=== PATIENT | male | born 1940 | race African-American/Black ===

== ENCOUNTER 2016-07-02 12:10 | Emergency (ER) | payer MEDICARE, OTHER ==
[~2016-07-02] VITALS: Ht 182.9 cm; Wt 86.4 kg
[~2016-07-02 12:10] MED LIST: ALLO100T PO; ASPI-825 PO; B CO1CAP4 PO; CARV25 PO; ENAL5 PO; FURO-151 PO; NITR.4 SL; ROSU10 PO; VITAD1000 PO
[2016-07-02] MEDS ORDERED: ALLO100T PO (13:04)
[2016-07-02] MEDS ORDERED: ROSU10 PO (13:04)
[2016-07-02] MEDS ORDERED: SEVEC800 PO (13:04)
[2016-07-02] MEDS ORDERED: HYDR25 PO (13:04)
[2016-07-02] MEDS ORDERED: NITROGLYCERIN 2% (1 GM=INCH) PACKET TP ONE (13:15)
[2016-07-02 13:41] LABS: BASOPHILS % (AUTO) 0.6 % (0.0-2.0); EOSINOPHILS % (AUTO) 4.5 % (1.0-6.0); HEMATOCRIT 32.9 % (41-53); HEMOGLOBIN 10.7 g/dL (13.5-17.5); LYMPHOCYTES # (AUTO) 1.2 K/uL (1.0-4.8); LYMPHOCYTES % (AUTO) 21.3 % (22.0-44.0); MEAN CORPUSCULAR HEMOGLOBIN 32.4 pg (26.0-34.0); MEAN CORPUSCULAR HGB CONC 32.6 G/dL (31.0-37.0); MEAN CORPUSCULAR VOLUME 99 fL (80-100); MONOCYTES % (AUTO) 18.1 % (2.0-9.0); NEUTROPHILS # (AUTO) 3.1 K/uL (1.8-7.7); NEUTROPHILS % (AUTO) 55.5 % (40.0-70.0); PLATELET COUNT (AUTO) 115 K/uL (150-450); RED BLOOD CELL COUNT(AUTO) 3.31 MIL/uL (4.50-5.90); RED CELL DISTRIBUTION WIDTH 14.6 % (11.5-14.5); WHITE BLOOD COUNT (AUTO) 5.6 K/uL (4.5-11.0)
[2016-07-02 13:50] LABS: ANION GAP 4 mmol/L (8-16); CALCIUM, TOTAL 8.8 mg/dL (8.8-10.5); CARBON DIOXIDE 39 mmol/L (22-29); CHLORIDE 96 mmol/L (98-107); CREATININE 5.01 mg/dL (0.60-1.30); GLOMERULAR FILTR. RATE CALC 14 mL/min (>60); POTASSIUM 3.2 mmol/L (3.5-5.1); SODIUM SERUM 139 mmol/L (136-145); UREA NITROGEN, BLOOD 28 mg/dL (7-18)
[2016-07-02 14:00] LABS: B-TYPE NATRIURETIC PEPTIDE 825 pg/mL (0-100)
[2016-07-02 14:17] LABS: ALANINE AMINOTRANSFERASE 10 U/L (12-78); ALBUMIN 3.1 g/dL (3.4-5.0); ASPARTATE AMINOTRANSFERASE 11 U/L (15-37); BILIRUBIN,TOTAL 0.7 mg/dL (0.1-1.0); CREATINE KINASE MB 1.2 ng/mL (0-5); CREATINE KINASE, TOTAL 183 U/L (39-308); TOTAL PROTEIN, SERUM 6.4 g/dL (6.4-8.2)
[2016-07-02 15:04] VITALS: BP 152/80
== END 2016-07-02 15:20 | disposition home or self-care (01) ==
LOC: EMS 12:13
DX: I11.0 Hypertensive heart disease with heart failure (principal); I50.9 Heart failure, unspecified; I51.7 Cardiomegaly; K21.9 Gastro-esophageal reflux disease without esophagitis; J45.909 Unspecified asthma, uncomplicated; Z95.0 Presence of cardiac pacemaker; Z79.82 Long term (current) use of aspirin; Z91.018 Allergy to other foods
CPT/HCPCS: 93005; 99291

== ENCOUNTER 2017-02-17 21:02 | Inpatient (IN) | payer MEDICARE, OTHER ==
[~2017-02-17] VITALS: Ht 182.9 cm; Wt 83.6 kg
[~2017-02-17 21:02] MED LIST changes: +HYDR25TA84 PO; +SEVEC800 PO
[2017-02-17 21:33] LABS: BASOPHILS # (AUTO) 0.03 K/uL (0.00-0.20); BASOPHILS % (AUTO) 0.6 % (0.0-2.0); EOSINOPHILS # (AUTO) 0.32 K/uL (0.00-0.70); EOSINOPHILS % (AUTO) 5.77 % (1.0-6.0); HEMATOCRIT 29.4 % (41-53); HEMOGLOBIN 9.8 g/dL (13.5-17.5); LYMPHOCYTES # (AUTO) 1.2 K/uL (1.0-4.8); LYMPHOCYTES % (AUTO) 21.8 % (22.0-44.0); MEAN CORPUSCULAR HEMOGLOBIN 32.9 pg (26.0-34.0); MEAN CORPUSCULAR HGB CONC 33.2 G/dL (31.0-37.0); MEAN CORPUSCULAR VOLUME 99 fL (80-100); MONOCYTES # (AUTO) 0.8 K/uL (0.1-1.0); MONOCYTES % (AUTO) 14.2 % (2.0-9.0); NEUTROPHILS # (AUTO) 3.1 K/uL (1.8-7.7); NEUTROPHILS % (AUTO) 57.6 % (40.0-70.0); PLATELET COUNT (AUTO) 116 K/uL (150-450); RED BLOOD CELL COUNT(AUTO) 2.97 MIL/uL (4.50-5.90); RED CELL DISTRIBUTION WIDTH 15.2 % (11.5-14.5); WHITE BLOOD COUNT (AUTO) 5.5 K/uL (4.5-11.0)
[2017-02-17 21:44] LABS: ANION GAP 8 mmol/L (8-16); CALCIUM, TOTAL 8.5 mg/dL (8.8-10.5); CARBON DIOXIDE 35 mmol/L (22-29); CHLORIDE 101 mmol/L (98-107); CREATININE 7.16 mg/dL (0.60-1.30); GLOMERULAR FILTR. RATE CALC 9 mL/min (>60); POTASSIUM 3.5 mmol/L (3.5-5.1); PROTHROMBIN TIME 10.9 SEC (9.4-11.6); SODIUM SERUM 144 mmol/L (136-145); UREA NITROGEN, BLOOD 36 mg/dL (7-18)
[2017-02-17 21:52] LABS: B-TYPE NATRIURETIC PEPTIDE 411 pg/mL (0-100)
[2017-02-17 22:09] LABS: ALANINE AMINOTRANSFERASE 15 U/L (12-78); ALBUMIN 3.3 g/dL (3.4-5.0); ASPARTATE AMINOTRANSFERASE 13 U/L (15-37); BILIRUBIN,TOTAL 0.5 mg/dL (0.1-1.0); CREATINE KINASE MB 1.2 ng/mL (0-5); CREATINE KINASE, TOTAL 212 U/L (39-308); TOTAL PROTEIN, SERUM 6.8 g/dL (6.4-8.2)
[2017-02-17] MEDS ORDERED: ASPIRIN 325 MG TABLET PO ONE (22:15)
[2017-02-17] MEDS ORDERED: ZOLPIDEM TARTRATE 5 MG TABLET PO PRN (22:45)
[2017-02-17] MEDS ORDERED: BISACODYL 10 MG RECTAL RECTAL SUPPOSITORY PR PRN (22:45)
[2017-02-17] MEDS ORDERED: OxyCODONE HCL/ACETAMINOPHEN 5-325 MG TABLET PO PRN (22:45)
[2017-02-17] MEDS ORDERED: ACETAMINOPHEN 325 MG TABLET PO PRN (22:45)
[2017-02-17 23:20] VITALS: BP 157/72
[2017-02-18 04:37] VITALS: BP 157/70
[2017-02-18] MEDS ORDERED: INFLUENZA VIRUS VACCINE QVS 2017-18 (3YR+)/PF 60 MCG/0.5 ML SYRINGE IM ONE (06:45)
[2017-02-18 07:12] VITALS: BP 157/70
[2017-02-18 07:50] LABS: APPEARANCE,URINE CLOUDY (CLEAR); GLUCOSE, URINE (UA) NEGATIVE (NEGATIVE); KETONES,URINE NEGATIVE (NEGATIVE); LEUKOCYTE ESTERASE ,URINE LARGE (NEGATIVE); OCCULT BLOOD,URINE SMALL (NEGATIVE); PROTEIN,URINE POS 1+ (NEGATIVE)
[2017-02-18 08:03] LABS: ADD UA MICROSCOPIC YES; WBC,URINE 51-100 /HPF (0-5)
[2017-02-18] MEDS: ASPIRIN 81 MG CHEWABLE TABLET PO SCH (08:44)
[2017-02-18] MEDS: DOCUSATE SODIUM 100 MG CAPSULE PO SCH ×2 (08:44→21:22)
[2017-02-18] MEDS: CARVEDILOL 12.5 MG TABLET PO SCH ×2 (08:44→21:22)
[2017-02-18] MEDS: ENALAPRIL MALEATE 5 MG TABLET PO SCH (08:44)
[2017-02-18] MEDS: VITAMIN B COMP/VIT C/FOLIC ACID CAPSULE PO SCH ×2 (08:44→13:14)
[2017-02-18] MEDS: PANTOPRAZOLE SODIUM 40 MG DR TABLET PO SCH (08:45)
[2017-02-18] MEDS: HEPARIN SODIUM,PORCINE 5,000 UNITS/ML VIAL SQ SCH ×2 (08:46→21:22)
[2017-02-18] MEDS ORDERED: DOXERCALCIFEROL 4 MCG/2 ML AMP IVP SCH (11:45)
[2017-02-18 12:11] VITALS: BP 136/63
[2017-02-18] MEDS: SEVELAMER CARBONATE 800 MG TABLET PO SCH ×2 (13:16→17:59)
[2017-02-18 15:35] VITALS: BP 128/65
[2017-02-18 19:40] VITALS: BP 144/60
[2017-02-18] MEDS: ROSUVASTATIN CALCIUM 10 MG TABLET PO SCH (21:22)
[2017-02-18 23:31] VITALS: BP 133/55
[2017-02-19 04:53] VITALS: BP 143/59
[2017-02-19 07:29] VITALS: BP 130/75
[2017-02-19] MEDS: ENALAPRIL MALEATE 5 MG TABLET PO SCH (08:45)
[2017-02-19] MEDS: DOCUSATE SODIUM 100 MG CAPSULE PO SCH ×2 (08:45→19:55)
[2017-02-19] MEDS: VITAMIN B COMP/VIT C/FOLIC ACID CAPSULE PO SCH ×2 (08:45→09:00)
[2017-02-19] MEDS: PANTOPRAZOLE SODIUM 40 MG DR TABLET PO SCH (08:45)
[2017-02-19] MEDS: SEVELAMER CARBONATE 800 MG TABLET PO SCH ×3 (08:45→18:27)
[2017-02-19] MEDS: CARVEDILOL 12.5 MG TABLET PO SCH ×2 (08:45→19:56)
[2017-02-19] MEDS: ASPIRIN 81 MG CHEWABLE TABLET PO SCH (08:45)
[2017-02-19] MEDS: HEPARIN SODIUM,PORCINE 5,000 UNITS/ML VIAL SQ SCH ×2 (09:55→19:55)
[2017-02-19 11:22] VITALS: BP 133/55
[2017-02-19 15:47] VITALS: BP 127/59
[2017-02-19] MEDS ORDERED: MAGNESIUM CITRATE 300 ML ORAL SOLUTION PO ONE (17:00)
[2017-02-19 19:46] VITALS: BP 141/65
[2017-02-19] MEDS: ROSUVASTATIN CALCIUM 10 MG TABLET PO SCH (19:56)
[2017-02-19 23:58] VITALS: BP 128/51
[2017-02-20 04:36] VITALS: BP 135/65
[2017-02-20 07:42] VITALS: BP 142/59
[2017-02-20] MEDS: DOCUSATE SODIUM 100 MG CAPSULE PO SCH ×2 (08:36→19:55)
[2017-02-20] MEDS: VITAMIN B COMP/VIT C/FOLIC ACID CAPSULE PO SCH ×2 (08:37)
[2017-02-20] MEDS: PANTOPRAZOLE SODIUM 40 MG DR TABLET PO SCH (08:37)
[2017-02-20] MEDS: CARVEDILOL 12.5 MG TABLET PO SCH ×2 (08:37→19:55)
[2017-02-20] MEDS: SEVELAMER CARBONATE 800 MG TABLET PO SCH ×3 (08:37→18:06)
[2017-02-20] MEDS: HEPARIN SODIUM,PORCINE 5,000 UNITS/ML VIAL SQ SCH ×2 (08:38→19:55)
[2017-02-20] MEDS: ASPIRIN 81 MG CHEWABLE TABLET PO SCH (08:38)
[2017-02-20] MEDS: ENALAPRIL MALEATE 5 MG TABLET PO SCH (08:38)
[2017-02-20] MEDS ORDERED: EPOETIN ALFA 10,000 UNITS/ML 2 ML VIAL SQ SCH (09:00)
[2017-02-20 11:16] VITALS: BP 130/56
[2017-02-20 13:16] LABS: BASOPHILS % (AUTO) 0.6 % (0.0-2.0); EOSINOPHILS % (AUTO) 7.5 % (1.0-6.0); HEMOGLOBIN 10.4 g/dL (13.5-17.5); LYMPHOCYTES # (AUTO) 0.9 K/uL (1.0-4.8); LYMPHOCYTES % (AUTO) 18.7 % (22.0-44.0); MEAN CORPUSCULAR HEMOGLOBIN 33.1 pg (26.0-34.0); MEAN CORPUSCULAR HGB CONC 33.4 G/dL (31.0-37.0); MEAN CORPUSCULAR VOLUME 99 fL (80-100); MONOCYTES # (AUTO) 0.6 K/uL (0.1-1.0); MONOCYTES % (AUTO) 11.4 % (2.0-9.0); NEUTROPHILS % (AUTO) 61.8 % (40.0-70.0); PLATELET COUNT (AUTO) 119 K/uL (150-450); RED BLOOD CELL COUNT(AUTO) 3.13 MIL/uL (4.50-5.90); RED CELL DISTRIBUTION WIDTH 14.7 % (11.5-14.5); WHITE BLOOD COUNT (AUTO) 4.9 K/uL (4.5-11.0)
[2017-02-20 13:23] LABS: CALCIUM, TOTAL 8.2 mg/dL (8.8-10.5); CREATININE 7.28 mg/dL (0.60-1.30)
[2017-02-20 13:29] LABS: BILIRUBIN,TOTAL 0.4 mg/dL (0.1-1.0); TOTAL PROTEIN, SERUM 6.4 g/dL (6.4-8.2)
[2017-02-20 16:33] VITALS: BP 131/72
[2017-02-20] MEDS: ROSUVASTATIN CALCIUM 10 MG TABLET PO SCH (19:55)
[2017-02-20 20:06] VITALS: BP 119/57
[2017-02-21 00:25] VITALS: BP 122/51
[2017-02-21 04:55] VITALS: BP 117/52
[2017-02-21 07:23] VITALS: BP 118/56
[2017-02-21] MEDS: PANTOPRAZOLE SODIUM 40 MG DR TABLET PO SCH (08:53)
[2017-02-21] MEDS: CARVEDILOL 12.5 MG TABLET PO SCH (08:53)
[2017-02-21] MEDS: VITAMIN B COMP/VIT C/FOLIC ACID CAPSULE PO SCH ×2 (08:53→08:55)
[2017-02-21] MEDS: ASPIRIN 81 MG CHEWABLE TABLET PO SCH (08:53)
[2017-02-21] MEDS: ENALAPRIL MALEATE 5 MG TABLET PO SCH (08:53)
[2017-02-21] MEDS: SEVELAMER CARBONATE 800 MG TABLET PO SCH ×2 (08:53→11:37)
[2017-02-21] MEDS: DOCUSATE SODIUM 100 MG CAPSULE PO SCH (08:53)
[2017-02-21] MEDS: HEPARIN SODIUM,PORCINE 5,000 UNITS/ML VIAL SQ SCH (08:53)
[2017-02-21 11:25] VITALS: BP 125/55
== END 2017-02-21 13:40 | disposition home or self-care (01) | DRG 291 ==
LOC: EMS 21:12 → 5S 23:13
PROVIDERS: ADMIT Internal Medicine; ATTEND Internal Medicine
PROC: 3E0234Z Introduction of Serum, Toxoid and Vaccine into Muscle, Percutaneous Approach (ICD-10-PCS; principal; 2017-02-18)
DX: I13.2 Hypertensive heart and chronic kidney disease with heart failure and with stage 5 chronic kidney disease, or end stage renal disease (principal); I50.43 Acute on chronic combined systolic (congestive) and diastolic (congestive) heart failure; N18.6 End stage renal disease; I25.5 Ischemic cardiomyopathy; M10.9 Gout, unspecified; E78.5 Hyperlipidemia, unspecified; J45.909 Unspecified asthma, uncomplicated; K21.9 Gastro-esophageal reflux disease without esophagitis; M16.10 Unilateral primary osteoarthritis, unspecified hip; Z95.810 Presence of automatic (implantable) cardiac defibrillator; Z85.46 Personal history of malignant neoplasm of prostate; Z99.2 Dependence on renal dialysis; Z82.49 Family history of ischemic heart disease and other diseases of the circulatory system; Z79.82 Long term (current) use of aspirin; Z79.899 Other long term (current) drug therapy; Z23 Encounter for immunization; Z88.8 Allergy status to other drugs, medicaments and biological substances
CPT/HCPCS: 87081; 87086; 87340; 90471; 90935; 93005; 93306; 99285; J0885; J1644

== ENCOUNTER 2017-03-01 23:23 | Inpatient (IN) | payer MEDICARE, OTHER ==
[~2017-03-01] VITALS: Ht 182.9 cm; Wt 82.2 kg
[2017-03-01 23:59] LABS: BASOPHILS % (AUTO) 1.3 % (0.0-2.0); EOSINOPHILS % (AUTO) 2.8 % (1.0-6.0); HEMATOCRIT 32.3 % (41-53); HEMOGLOBIN 10.5 g/dL (13.5-17.5); LYMPHOCYTES # (AUTO) 1.3 K/uL (1.0-4.8); LYMPHOCYTES % (AUTO) 27.6 % (22.0-44.0); MEAN CORPUSCULAR HEMOGLOBIN 32.8 pg (26.0-34.0); MEAN CORPUSCULAR HGB CONC 32.6 G/dL (31.0-37.0); MEAN CORPUSCULAR VOLUME 101 fL (80-100); MONOCYTES # (AUTO) 0.8 K/uL (0.1-1.0); MONOCYTES % (AUTO) 15.9 % (2.0-9.0); NEUTROPHILS # (AUTO) 2.5 K/uL (1.8-7.7); NEUTROPHILS % (AUTO) 52.4 % (40.0-70.0); PLATELET COUNT (AUTO) 135 K/uL (150-450); RED BLOOD CELL COUNT(AUTO) 3.21 MIL/uL (4.50-5.90); RED CELL DISTRIBUTION WIDTH 14.9 % (11.5-14.5); WHITE BLOOD COUNT (AUTO) 4.8 K/uL (4.5-11.0)
[2017-03-02 00:10] LABS: ANION GAP 12 mmol/L (8-16); CALCIUM, TOTAL 9.2 mg/dL (8.8-10.5); CARBON DIOXIDE 28 mmol/L (22-29); CHLORIDE 104 mmol/L (98-107); CREATININE 10.79 mg/dL (0.60-1.30); GLOMERULAR FILTR. RATE CALC 6 mL/min (>60); POTASSIUM 4.2 mmol/L (3.5-5.1); SODIUM SERUM 144 mmol/L (136-145); UREA NITROGEN, BLOOD 70 mg/dL (7-18)
[2017-03-02 00:12] LABS: INR 1.1 (0.9-1.1); PROTHROMBIN TIME 11.4 SEC (9.4-11.6)
[2017-03-02 00:25] LABS: B-TYPE NATRIURETIC PEPTIDE 278 pg/mL (0-100)
[2017-03-02 00:33] LABS: ALANINE AMINOTRANSFERASE 15 U/L (12-78); ALBUMIN 3.6 g/dL (3.4-5.0); ASPARTATE AMINOTRANSFERASE 15 U/L (15-37); BILIRUBIN,TOTAL 0.9 mg/dL (0.1-1.0); CREATINE KINASE MB 1.4 ng/mL (0-5); CREATINE KINASE, TOTAL 242 U/L (39-308); TOTAL PROTEIN, SERUM 6.9 g/dL (6.4-8.2)
[2017-03-02] MEDS ORDERED: ASPIRIN 325 MG TABLET PO ONE (01:30)
[2017-03-02] MEDS ORDERED: NITROGLYCERIN 0.4 MG SUBLINGUAL TABLET #25 SL ONE (01:30)
[2017-03-02] MEDS ORDERED: ONDANSETRON HCL 4 MG/2 ML VIAL IVP PRN ×2 (03:45→04:30)
[2017-03-02] MEDS ORDERED: ACETAMINOPHEN 325 MG TABLET PO PRN ×2 (03:45→04:30)
[2017-03-02] MEDS ORDERED: 0.9% SODIUM CHLORIDE 10 ML SYRINGE IVP PRN (03:45)
[2017-03-02] MEDS ORDERED: NITROGLYCERIN 2% (1 GM=INCH) PACKET TP ONE (04:00)
[2017-03-02 04:26] VITALS: BP 157/63
[2017-03-02] MEDS ORDERED: MORPHINE SULFATE 2 MG/ML SYRINGE IVP PRN (04:30)
[2017-03-02] MEDS ORDERED: ALBUTEROL SULFATE 2.5 MG/0.5 ML NEB SOLUTION NEB PRN (04:30)
[2017-03-02] MEDS ORDERED: MAGNESIUM HYDROXIDE SUSPENSION 30 ML UDCUP PO PRN (04:30)
[2017-03-02] MEDS ORDERED: OxyCODONE HCL/ACETAMINOPHEN 5-325 MG TABLET PO PRN (04:30)
[2017-03-02] MEDS ORDERED: IPRATROPIUM BROMIDE 0.5 MG/2.5 ML NEB SOLUTION NEB PRN (04:30)
[2017-03-02] MEDS ORDERED: ZOLPIDEM TARTRATE 5 MG TABLET PO PRN (04:30)
[2017-03-02] MEDS ORDERED: BISACODYL 10 MG RECTAL RECTAL SUPPOSITORY PR PRN (04:30)
[2017-03-02] MEDS ORDERED: PNEUMOCOCCAL VACCINE POLYVALENT 0.5 ML VIAL [PPSV23] IM ONE (05:15)
[2017-03-02 07:37] VITALS: BP 145/79
[2017-03-02] MEDS: SEVELAMER CARBONATE 800 MG TABLET PO SCH ×3 (08:16→17:41)
[2017-03-02] MEDS: HydrALAZINE HCL 25 MG TABLET PO SCH ×3 (08:17→20:58)
[2017-03-02] MEDS: CHOLECALCIFEROL (VIT D3) 1,000 UNITS TABLET PO SCH (08:18)
[2017-03-02] MEDS: ALLOPURINOL 100 MG TABLET PO SCH (08:19)
[2017-03-02] MEDS: PANTOPRAZOLE SODIUM 40 MG DR TABLET PO SCH (08:19)
[2017-03-02] MEDS: ROSUVASTATIN CALCIUM 10 MG TABLET PO SCH (08:19)
[2017-03-02] MEDS: VITAMIN B COMP/VIT C/FOLIC ACID CAPSULE PO SCH (08:20)
[2017-03-02] MEDS: CARVEDILOL 25 MG TABLET PO SCH ×2 (08:21→20:58)
[2017-03-02] MEDS ORDERED: FUROSEMIDE 40 MG TABLET PO SCH (09:00)
[2017-03-02] MEDS: ENALAPRIL MALEATE 5 MG TABLET PO SCH (09:00)
[2017-03-02] MEDS ORDERED: DOXERCALCIFEROL 4 MCG/2 ML AMP IVP PRN (11:00)
[2017-03-02] MEDS: NITROGLYCERIN 2% (1 GM=INCH) PACKET TP SCH ×2 (11:00→17:41)
[2017-03-02 11:09] VITALS: BP 133/64
[2017-03-02 20:15] VITALS: BP 126/64
[2017-03-03 00:28] VITALS: BP 137/60
[2017-03-03] MEDS: NITROGLYCERIN 2% (1 GM=INCH) PACKET TP SCH ×3 (01:10→12:00)
[2017-03-03 05:52] VITALS: BP 140/61
[2017-03-03 08:00] VITALS: BP 130/67
[2017-03-03] MEDS: ALLOPURINOL 100 MG TABLET PO SCH (08:27)
[2017-03-03] MEDS: CHOLECALCIFEROL (VIT D3) 1,000 UNITS TABLET PO SCH (08:27)
[2017-03-03] MEDS: VITAMIN B COMP/VIT C/FOLIC ACID CAPSULE PO SCH (08:28)
[2017-03-03] MEDS: ROSUVASTATIN CALCIUM 10 MG TABLET PO SCH (08:28)
[2017-03-03] MEDS: ENALAPRIL MALEATE 5 MG TABLET PO SCH (08:29)
[2017-03-03] MEDS ORDERED: -HEMODIALYSIS NOTE- MISC SCH (09:00)
[2017-03-03] MEDS: CARVEDILOL 25 MG TABLET PO SCH (09:00)
[2017-03-03] MEDS ORDERED: FUROSEMIDE 40 MG TABLET PO SCH (09:00)
[2017-03-03] MEDS: SEVELAMER CARBONATE 800 MG TABLET PO SCH ×2 (09:26→12:00)
[2017-03-03] MEDS: PANTOPRAZOLE SODIUM 40 MG DR TABLET PO SCH (09:27)
[2017-03-03] MEDS: HydrALAZINE HCL 25 MG TABLET PO SCH (09:27)
[2017-03-03 11:38] VITALS: BP 118/61
[2017-03-04] MEDS ORDERED: EPOETIN ALFA 10,000 UNITS/ML 2 ML VIAL SQ SCH (09:00)
== END 2017-03-03 15:50 | disposition home or self-care (01) | DRG 302 ==
LOC: EMS 23:25 → 5S 03-02 03:42 → 5N 03-02 17:28
PROVIDERS: ADMIT Internal Medicine; ATTEND Internal Medicine
PROC: 3E0234Z Introduction of Serum, Toxoid and Vaccine into Muscle, Percutaneous Approach (ICD-10-PCS; principal; 2017-03-02)
PROC: 5A1D70Z Performance of Urinary Filtration, Intermittent, Less than 6 Hours Per Day (ICD-10-PCS; 2017-03-02)
DX: I25.10 Atherosclerotic heart disease of native coronary artery without angina pectoris (principal); N18.6 End stage renal disease; I13.2 Hypertensive heart and chronic kidney disease with heart failure and with stage 5 chronic kidney disease, or end stage renal disease; D69.6 Thrombocytopenia, unspecified; I25.5 Ischemic cardiomyopathy; N25.81 Secondary hyperparathyroidism of renal origin; I50.20 Unspecified systolic (congestive) heart failure; R07.89 Other chest pain; J45.909 Unspecified asthma, uncomplicated; M10.9 Gout, unspecified; E78.5 Hyperlipidemia, unspecified; Z99.2 Dependence on renal dialysis; K21.9 Gastro-esophageal reflux disease without esophagitis; Z95.0 Presence of cardiac pacemaker; Z79.82 Long term (current) use of aspirin; Z79.899 Other long term (current) drug therapy; Z82.3 Family history of stroke; Z85.46 Personal history of malignant neoplasm of prostate; Z95.810 Presence of automatic (implantable) cardiac defibrillator; Z23 Encounter for immunization; Z91.018 Allergy to other foods; Z83.6 Family history of other diseases of the respiratory system; Z81.8 Family history of other mental and behavioral disorders
CPT/HCPCS: 87081; 87340; 90935; 93005; 99285; J0885

== ENCOUNTER 2017-06-13 13:18 | Inpatient (IN) | payer MEDICARE, OTHER ==
[~2017-06-13] VITALS: Ht 182.9 cm; Wt 90.8 kg
[2017-06-13 15:04] LABS: BASOPHILS # (AUTO) 0.03 K/uL (0.00-0.20); BASOPHILS % (AUTO) 0.6 % (0.0-2.0); EOSINOPHILS # (AUTO) 0.22 K/uL (0.00-0.70); EOSINOPHILS % (AUTO) 3.88 % (1.0-6.0); HEMATOCRIT 35.1 % (41-53); HEMOGLOBIN 11.4 g/dL (13.5-17.5); LYMPHOCYTES # (AUTO) 0.7 K/uL (1.0-4.8); LYMPHOCYTES % (AUTO) 12.6 % (22.0-44.0); MEAN CORPUSCULAR HEMOGLOBIN 32.9 pg (26.0-34.0); MEAN CORPUSCULAR HGB CONC 32.6 G/dL (31.0-37.0); MEAN CORPUSCULAR VOLUME 101 fL (80-100); MONOCYTES # (AUTO) 0.7 K/uL (0.1-1.0); MONOCYTES % (AUTO) 11.6 % (2.0-9.0); NEUTROPHILS # (AUTO) 4.1 K/uL (1.8-7.7); NEUTROPHILS % (AUTO) 71.4 % (40.0-70.0); PLATELET COUNT (AUTO) 140 K/uL (150-450); RED BLOOD CELL COUNT(AUTO) 3.47 MIL/uL (4.50-5.90)
[2017-06-13 15:15] LABS: CALCIUM, TOTAL 9.2 mg/dL (8.8-10.5); CREATININE 8.88 mg/dL (0.60-1.30); POTASSIUM 3.7 mmol/L (3.5-5.1)
[2017-06-13 15:21] LABS: ALBUMIN 3.4 g/dL (3.4-5.0); BILIRUBIN,TOTAL 0.6 mg/dL (0.1-1.0); TOTAL PROTEIN, SERUM 7.6 g/dL (6.4-8.2)
[2017-06-13 16:30] LABS: APPEARANCE,URINE CLOUDY (CLEAR); GLUCOSE, URINE (UA) NEGATIVE (NEGATIVE); KETONES,URINE NEGATIVE (NEGATIVE); LEUKOCYTE ESTERASE ,URINE MODERATE (NEGATIVE); NITRATE,URINE POSITIVE (NEGATIVE); OCCULT BLOOD,URINE SMALL (NEGATIVE); PH,URINE 6.5 (5.0-8.0); PROTEIN,URINE SEE CONFIRM (NEGATIVE)
[2017-06-13 16:34] LABS: AMPHET/METH SCREEN,URINE NEGATIVE (NEGATIVE); BARBITURATE SCREEN, URINE NEGATIVE (NEGATIVE); BENZODIAZEPINES SCREEN,URINE NEGATIVE (NEGATIVE); CANNABINOID SCREEN,URINE NEGATIVE (NEGATIVE); COCAINE SCREEN,URINE NEGATIVE (NEGATIVE); METHADONE SCREEN, URINE NEGATIVE (NEGATIVE); OPIATE SCREEN,URINE NEGATIVE (NEGATIVE)
[2017-06-13 16:40] LABS: PHENCYCLIDINE SCREEN,URINE NEGATIVE (NEGATIVE)
[2017-06-13 17:03] LABS: BILIRUBIN,URINE PRELIM. POSITIVE (NEGATIVE)
[2017-06-13 17:11] LABS: BACTERIA,URINE Moderate /HPF (None Seen); SQUAMOUS EPITHELIAL CELL,UR Few /LPF (None Seen); SULFOSALICYLIC ACID,URINE 2+ (Negative)
[2017-06-13] MEDS ORDERED: CefTRIAXone SODIUM 1 GM in DEXTROSE 5%-WATER 10 ML IV ONE (17:30)
[2017-06-13] MEDS ORDERED: ONDANSETRON HCL 4 MG/2 ML VIAL IVP PRN ×2 (18:45→20:15)
[2017-06-13] MEDS ORDERED: ACETAMINOPHEN 325 MG TABLET PO PRN ×2 (18:45→20:15)
[2017-06-13 20:14] VITALS: BP 139/58
[2017-06-13] MEDS ORDERED: ALBUTEROL SULFATE 2.5 MG/0.5 ML NEB SOLUTION NEB PRN (20:15)
[2017-06-13] MEDS ORDERED: NITROGLYCERIN 0.4 MG SUBLINGUAL TABLET #25 SL PRN (20:15)
[2017-06-13] MEDS ORDERED: 0.9% SODIUM CHLORIDE 10 ML SYRINGE IVP PRN (20:15)
[2017-06-13] MEDS ORDERED: MAGNESIUM HYDROXIDE SUSPENSION 30 ML UDCUP PO PRN (20:15)
[2017-06-13] MEDS ORDERED: IPRATROPIUM BROMIDE 0.5 MG/2.5 ML NEB SOLUTION NEB PRN (20:15)
[2017-06-13] MEDS ORDERED: BISACODYL 10 MG RECTAL RECTAL SUPPOSITORY PR PRN (20:15)
[2017-06-13] MEDS ORDERED: -PHARMACY VACCINE NOTE- MISC ONE (22:00)
[2017-06-13] MEDS: CARVEDILOL 25 MG TABLET PO SCH (22:16)
[2017-06-13] MEDS: DOCUSATE SODIUM 100 MG CAPSULE PO SCH (22:16)
[2017-06-13] MEDS: HydrALAZINE HCL 25 MG TABLET PO SCH (22:16)
[2017-06-13 23:01] VITALS: BP 122/56
[2017-06-14 04:05] VITALS: BP 114/58
[2017-06-14 06:38] LABS: BASOPHILS # (AUTO) 0.03 K/uL (0.00-0.20); BASOPHILS % (AUTO) 0.5 % (0.0-2.0); EOSINOPHILS # (AUTO) 0.23 K/uL (0.00-0.70); EOSINOPHILS % (AUTO) 3.63 % (1.0-6.0); HEMATOCRIT 32.1 % (41-53); HEMOGLOBIN 10.4 g/dL (13.5-17.5); LYMPHOCYTES # (AUTO) 1.3 K/uL (1.0-4.8); LYMPHOCYTES % (AUTO) 20.2 % (22.0-44.0); MEAN CORPUSCULAR HEMOGLOBIN 32.6 pg (26.0-34.0); MEAN CORPUSCULAR HGB CONC 32.4 G/dL (31.0-37.0); MEAN CORPUSCULAR VOLUME 101 fL (80-100); MONOCYTES # (AUTO) 0.7 K/uL (0.1-1.0); MONOCYTES % (AUTO) 11.4 % (2.0-9.0); NEUTROPHILS % (AUTO) 64.3 % (40.0-70.0); PLATELET COUNT (AUTO) 121 K/uL (150-450); RED BLOOD CELL COUNT(AUTO) 3.19 MIL/uL (4.50-5.90); RED CELL DISTRIBUTION WIDTH 16.2 % (11.5-14.5)
[2017-06-14 06:52] LABS: BILIRUBIN,TOTAL 0.5 mg/dL (0.1-1.0); CALCIUM, TOTAL 8.9 mg/dL (8.8-10.5); CHOL/HDL RATIO 2.7 (4.2-7.3); CREATININE 9.81 mg/dL (0.60-1.30); FREE T4 (FREE THYROXINE) 0.95 ng/dL (0.76-1.46); MAGNESIUM 2.5 mg/dL (1.80-2.40); POTASSIUM 4.4 mmol/L (3.5-5.1); THYROID STIMULATING HORMONE 0.55 uIU/mL (0.36-3.74); TOTAL PROTEIN, SERUM 6.8 g/dL (6.4-8.2)
[2017-06-14 07:23] VITALS: BP 126/58
[2017-06-14] MEDS: SEVELAMER CARBONATE 800 MG TABLET PO SCH ×3 (08:14→18:21)
[2017-06-14] MEDS: HydrALAZINE HCL 25 MG TABLET PO SCH ×3 (08:14→20:19)
[2017-06-14] MEDS: DOCUSATE SODIUM 100 MG CAPSULE PO SCH ×2 (08:15→20:19)
[2017-06-14] MEDS: ASPIRIN 81 MG CHEWABLE TABLET PO SCH (08:15)
[2017-06-14] MEDS: CARVEDILOL 25 MG TABLET PO SCH ×2 (08:15→20:19)
[2017-06-14] MEDS: ROSUVASTATIN CALCIUM 10 MG TABLET PO SCH (08:15)
[2017-06-14] MEDS: VITAMIN B COMP/VIT C/FOLIC ACID CAPSULE PO SCH (08:16)
[2017-06-14] MEDS: PANTOPRAZOLE SODIUM 40 MG DR TABLET PO SCH (08:16)
[2017-06-14] MEDS: CHOLECALCIFEROL (VIT D3) 1,000 UNITS TABLET PO SCH (08:17)
[2017-06-14] MEDS: ALLOPURINOL 100 MG TABLET PO SCH (08:18)
[2017-06-14 11:15] VITALS: BP 120/51
[2017-06-14] MEDS ORDERED: SODIUM CHLORIDE 0.9% 1,000 ML IV ONE (14:45)
[2017-06-14] MEDS: CefTRIAXone SODIUM 1 GM in DEXTROSE 5%-WATER 10 ML IV SCH (18:21)
[2017-06-14 19:40] VITALS: BP 130/59
[2017-06-14 23:44] VITALS: BP 142/63
[2017-06-15 04:24] VITALS: BP 129/62
[2017-06-15 07:16] VITALS: BP 137/53
[2017-06-15] MEDS: SEVELAMER CARBONATE 800 MG TABLET PO SCH ×3 (08:00→18:22)
[2017-06-15 11:29] VITALS: BP 139/60
[2017-06-15] MEDS ORDERED: LIDOCAINE HCL/PF 1% 2 ML VIAL INJ ONE ×2 (12:00→15:19)
[2017-06-15] MEDS: CHOLECALCIFEROL (VIT D3) 1,000 UNITS TABLET PO SCH (14:38)
[2017-06-15] MEDS: VITAMIN B COMP/VIT C/FOLIC ACID CAPSULE PO SCH (14:38)
[2017-06-15] MEDS: ALLOPURINOL 100 MG TABLET PO SCH (14:39)
[2017-06-15] MEDS: PANTOPRAZOLE SODIUM 40 MG DR TABLET PO SCH (14:39)
[2017-06-15] MEDS: DOCUSATE SODIUM 100 MG CAPSULE PO SCH ×2 (14:40→20:41)
[2017-06-15] MEDS: CARVEDILOL 25 MG TABLET PO SCH ×2 (14:40→20:41)
[2017-06-15] MEDS: ASPIRIN 81 MG CHEWABLE TABLET PO SCH (14:40)
[2017-06-15] MEDS: HydrALAZINE HCL 25 MG TABLET PO SCH ×3 (14:41→20:41)
[2017-06-15] MEDS: ROSUVASTATIN CALCIUM 10 MG TABLET PO SCH (14:41)
[2017-06-15 15:31] VITALS: BP 145/60
[2017-06-15] MEDS: CefTRIAXone SODIUM 1 GM in DEXTROSE 5%-WATER 10 ML IV SCH (18:21)
[2017-06-15 19:49] VITALS: BP 150/63
[2017-06-16 00:14] VITALS: BP 134/67
[2017-06-16 05:58] VITALS: BP 144/65
[2017-06-16 07:35] VITALS: BP 139/63
[2017-06-16] MEDS: ROSUVASTATIN CALCIUM 10 MG TABLET PO SCH (08:40)
[2017-06-16] MEDS: ASPIRIN 81 MG CHEWABLE TABLET PO SCH (08:41)
[2017-06-16] MEDS: VITAMIN B COMP/VIT C/FOLIC ACID CAPSULE PO SCH (08:41)
[2017-06-16] MEDS: DOCUSATE SODIUM 100 MG CAPSULE PO SCH (08:41)
[2017-06-16] MEDS: SEVELAMER CARBONATE 800 MG TABLET PO SCH ×2 (08:41→11:56)
[2017-06-16] MEDS: CHOLECALCIFEROL (VIT D3) 1,000 UNITS TABLET PO SCH (08:41)
[2017-06-16] MEDS: ALLOPURINOL 100 MG TABLET PO SCH (08:41)
[2017-06-16] MEDS: CARVEDILOL 25 MG TABLET PO SCH (08:42)
[2017-06-16] MEDS: PANTOPRAZOLE SODIUM 40 MG DR TABLET PO SCH (08:43)
[2017-06-16] MEDS: HydrALAZINE HCL 25 MG TABLET PO SCH (08:47)
[2017-06-16 11:21] VITALS: BP 110/54
[2017-06-16] MEDS: CefTRIAXone SODIUM 1 GM in DEXTROSE 5%-WATER 10 ML IV SCH (14:21)
== END 2017-06-16 15:20 | disposition home or self-care (01) | DRG 640 ==
LOC: EMS 13:20 → 5S 18:28 → 5N 06-15 18:55
PROVIDERS: ADMIT Internal Medicine; ATTEND Internal Medicine
PROC: 4B02XTZ Measurement of Cardiac Defibrillator, External Approach (ICD-10-PCS; 2017-06-13)
PROC: 5A1D70Z Performance of Urinary Filtration, Intermittent, Less than 6 Hours Per Day (ICD-10-PCS; principal; 2017-06-15)
DX: E86.0 Dehydration (principal); N18.6 End stage renal disease; I13.2 Hypertensive heart and chronic kidney disease with heart failure and with stage 5 chronic kidney disease, or end stage renal disease; D69.6 Thrombocytopenia, unspecified; I42.9 Cardiomyopathy, unspecified; D63.8 Anemia in other chronic diseases classified elsewhere; N39.0 Urinary tract infection, site not specified; E78.5 Hyperlipidemia, unspecified; I25.10 Atherosclerotic heart disease of native coronary artery without angina pectoris; I50.9 Heart failure, unspecified; J45.909 Unspecified asthma, uncomplicated; K21.9 Gastro-esophageal reflux disease without esophagitis; M10.9 Gout, unspecified; Z79.82 Long term (current) use of aspirin; Z79.899 Other long term (current) drug therapy; Z99.2 Dependence on renal dialysis; Z95.810 Presence of automatic (implantable) cardiac defibrillator; Z85.46 Personal history of malignant neoplasm of prostate; Z91.018 Allergy to other foods
CPT/HCPCS: 70450; 83735; 84100; 84145; 84146; 84439; 84443; 87040; 87081; 87086; 87340; 93005; 93306; 93880; 96374; 97161; 97165; 99285; J0696; J3490; J7030; J7060

== ENCOUNTER → 2017-07-07 | Outpatient (CLI) | payer MEDICARE, OTHER ==
[~2017-07-07] MED LIST changes: -ALLO100T PO; -ENAL5 PO; -FURO-151 PO
== END | disposition home or self-care (01) ==
LOC: RADPV 08:56
PROVIDERS: ATTEND Specialist
DX: M75.32 Calcific tendinitis of left shoulder (principal); M75.31 Calcific tendinitis of right shoulder; M51.37 Other intervertebral disc degeneration, lumbosacral region; M47.896 Other spondylosis, lumbar region; M17.0 Bilateral primary osteoarthritis of knee; M19.032 Primary osteoarthritis, left wrist; M19.031 Primary osteoarthritis, right wrist; M79.89 Other specified soft tissue disorders
CPT/HCPCS: 72100

== ENCOUNTER 2017-09-25 00:25 | Inpatient (IN) | payer MEDICARE, OTHER ==
[~2017-09-25] VITALS: Ht 180.3 cm; Wt 89.6 kg
[2017-09-25] MEDS ORDERED: ALLO100T PO (00:42)
[2017-09-25] MEDS ORDERED: ASPIRIN 81 MG CHEWABLE TABLET PO ONE (01:15)
[2017-09-25 01:42] LABS: BASOPHILS % (AUTO) 0.9 % (0.0-2.0); EOSINOPHILS % (AUTO) 5.3 % (1.0-6.0); HEMATOCRIT 33.7 % (41-53); HEMOGLOBIN 11.7 g/dL (13.5-17.5); LYMPHOCYTES # (AUTO) 1.7 K/uL (1.0-4.8); LYMPHOCYTES % (AUTO) 24.1 % (22.0-44.0); MEAN CORPUSCULAR HEMOGLOBIN 33.8 pg (26.0-34.0); MEAN CORPUSCULAR HGB CONC 34.8 G/dL (31.0-37.0); MEAN CORPUSCULAR VOLUME 97 fL (80-100); NEUTROPHILS # (AUTO) 3.9 K/uL (1.8-7.7); NEUTROPHILS % (AUTO) 55.7 % (40.0-70.0); PLATELET COUNT (AUTO) 122 K/uL (150-450); RED BLOOD CELL COUNT(AUTO) 3.47 MIL/uL (4.50-5.90); RED CELL DISTRIBUTION WIDTH 14.2 % (11.5-14.5)
[2017-09-25 01:49] LABS: ANION GAP 7 mmol/L (8-16); CALCIUM, TOTAL 9.5 mg/dL (8.8-10.5); CARBON DIOXIDE 36 mmol/L (22-29); CHLORIDE 97 mmol/L (98-107); CREATININE 9.44 mg/dL (0.60-1.30); GLOMERULAR FILTR. RATE CALC 7 mL/min (>60); GLUCOSE,RANDOM 96 mg/dL (70-110); POTASSIUM 4.8 mmol/L (3.5-5.1); SODIUM SERUM 140 mmol/L (136-145); UREA NITROGEN, BLOOD 37 mg/dL (7-18)
[2017-09-25 01:51] LABS: PROTHROMBIN TIME 10.4 SEC (9.4-11.6)
[2017-09-25 02:01] LABS: B-TYPE NATRIURETIC PEPTIDE 140 pg/mL (0-100)
[2017-09-25 02:19] LABS: ALANINE AMINOTRANSFERASE 17 U/L (12-78); ALBUMIN 3.3 g/dL (3.4-5.0); ALKALINE PHOSPHATASE 68 U/L (46-116); ASPARTATE AMINOTRANSFERASE 16 U/L (15-37); BILIRUBIN,TOTAL 0.5 mg/dL (0.1-1.0); CREATINE KINASE MB 2.1 ng/mL (0-5); CREATINE KINASE, TOTAL 201 U/L (39-308); TOTAL PROTEIN, SERUM 7.2 g/dL (6.4-8.2)
[2017-09-25 03:13] LABS: APPEARANCE,URINE CLOUDY (CLEAR); BILIRUBIN,URINE NEGATIVE (NEGATIVE); GLUCOSE, URINE (UA) NEGATIVE (NEGATIVE); KETONES,URINE NEGATIVE (NEGATIVE); NITRATE,URINE POSITIVE (NEGATIVE); OCCULT BLOOD,URINE SMALL (NEGATIVE); PROTEIN,URINE SEE CONFIRM (NEGATIVE); UROBILINOGEN,URINE 0.2 mg/dL (<=1.0)
[2017-09-25 03:38] LABS: LEUKOCYTE ESTERASE ,URINE MODERATE (NEGATIVE)
[2017-09-25 03:39] LABS: BACTERIA,URINE Many /HPF (None Seen)
[2017-09-25 03:40] LABS: SULFOSALICYLIC ACID,URINE 2+ (Negative)
[2017-09-25] MEDS ORDERED: NITROGLYCERIN 2% (1 GM=INCH) PACKET TP ONE (03:45)
[2017-09-25] MEDS ORDERED: CefTRIAXone SODIUM 1 GM in DEXTROSE 5%-WATER 10 ML IV ONE (04:00)
[2017-09-25 04:20] VITALS: BP 160/81
[2017-09-25] MEDS ORDERED: ONDANSETRON HCL 4 MG/2 ML VIAL IVP PRN (07:30)
[2017-09-25] MEDS ORDERED: ACETAMINOPHEN 325 MG TABLET PO PRN (07:30)
[2017-09-25] MEDS ORDERED: BISACODYL 10 MG RECTAL RECTAL SUPPOSITORY PR PRN (07:30)
[2017-09-25] MEDS ORDERED: MORPHINE SULFATE 4 MG/ML SYRINGE IVP PRN (07:30)
[2017-09-25] MEDS ORDERED: HYDROCODONE/ACETAMINOPHEN 5-325 MG TABLET PO PRN (07:30)
[2017-09-25] MEDS ORDERED: MAGNESIUM HYDROXIDE SUSPENSION 30 ML UDCUP PO PRN (07:30)
[2017-09-25] MEDS ORDERED: ZOLPIDEM TARTRATE 5 MG TABLET PO PRN (07:30)
[2017-09-25 07:40] VITALS: BP 128/67
[2017-09-25] MEDS: CARVEDILOL 25 MG TABLET PO SCH ×2 (08:43→21:04)
[2017-09-25] MEDS: ASPIRIN 81 MG CHEWABLE TABLET PO SCH (08:43)
[2017-09-25] MEDS: CHOLECALCIFEROL (VIT D3) 1,000 UNITS TABLET PO SCH (08:43)
[2017-09-25] MEDS: SEVELAMER CARBONATE 800 MG TABLET PO SCH ×3 (08:43→17:49)
[2017-09-25] MEDS: PANTOPRAZOLE SODIUM 40 MG DR TABLET PO SCH (08:43)
[2017-09-25] MEDS: ROSUVASTATIN CALCIUM 10 MG TABLET PO SCH (08:43)
[2017-09-25] MEDS: NITROGLYCERIN 2% (1 GM=INCH) PACKET TP SCH ×2 (08:43→16:32)
[2017-09-25] MEDS: DOCUSATE SODIUM 100 MG CAPSULE PO SCH ×2 (08:43→21:04)
[2017-09-25 11:53] VITALS: BP 142/80
[2017-09-25] MEDS: VITAMIN B COMP/VIT C/FOLIC ACID CAPSULE PO SCH (16:29)
[2017-09-25 19:55] VITALS: BP 147/71
[2017-09-26] VITALS (7 sets, daily range): BP systolic 134–149; BP diastolic 56–67
[2017-09-26] MEDS: NITROGLYCERIN 2% (1 GM=INCH) PACKET TP SCH ×4 (00:14→23:42)
[2017-09-26 07:08] LABS: CHOL/HDL RATIO 3.8 (4.2-7.3)
[2017-09-26] MEDS: SEVELAMER CARBONATE 800 MG TABLET PO SCH ×3 (08:03→18:15)
[2017-09-26] MEDS: VITAMIN B COMP/VIT C/FOLIC ACID CAPSULE PO SCH (08:05)
[2017-09-26] MEDS: DOCUSATE SODIUM 100 MG CAPSULE PO SCH ×2 (08:05→21:17)
[2017-09-26] MEDS: PANTOPRAZOLE SODIUM 40 MG DR TABLET PO SCH (08:05)
[2017-09-26] MEDS: CHOLECALCIFEROL (VIT D3) 1,000 UNITS TABLET PO SCH (08:06)
[2017-09-26] MEDS: ASPIRIN 81 MG CHEWABLE TABLET PO SCH (08:06)
[2017-09-26] MEDS: ROSUVASTATIN CALCIUM 10 MG TABLET PO SCH (08:07)
[2017-09-26] MEDS: CARVEDILOL 25 MG TABLET PO SCH ×2 (08:07→21:17)
[2017-09-26] MEDS ORDERED: MANNITOL 25%-12.5 GM/50 ML VIAL IVP PRN (09:30)
[2017-09-26 10:21] LABS: BASOPHILS % (AUTO) 0.2 % (0.0-2.0); EOSINOPHILS % (AUTO) 8.8 % (1.0-6.0); HEMATOCRIT 30.9 % (41-53); HEMOGLOBIN 10.7 g/dL (13.5-17.5); LYMPHOCYTES # (AUTO) 0.8 K/uL (1.0-4.8); MEAN CORPUSCULAR HEMOGLOBIN 33.3 pg (26.0-34.0); MEAN CORPUSCULAR HGB CONC 34.6 G/dL (31.0-37.0); MEAN CORPUSCULAR VOLUME 96 fL (80-100); MONOCYTES # (AUTO) 0.2 K/uL (0.1-1.0); MONOCYTES % (AUTO) 5.8 % (2.0-9.0); NEUTROPHILS # (AUTO) 2.3 K/uL (1.8-7.7); NEUTROPHILS % (AUTO) 63.2 % (40.0-70.0); PLATELET COUNT (AUTO) 109 K/uL (150-450); RED BLOOD CELL COUNT(AUTO) 3.21 MIL/uL (4.50-5.90); RED CELL DISTRIBUTION WIDTH 14.1 % (11.5-14.5)
[2017-09-26 10:27] LABS: CALCIUM, TOTAL 8.5 mg/dL (8.8-10.5); CREATININE 8.31 mg/dL (0.60-1.30); POTASSIUM 4.2 mmol/L (3.5-5.1)
[2017-09-26 11:08] LABS: PLATELET MORPHOLOGY COMMENT LARGE PLTS PRESENT
[2017-09-27 05:29] VITALS: BP 130/60
[2017-09-27 06:27] LABS: BASOPHILS % (AUTO) 1.2 % (0.0-2.0); EOSINOPHILS % (AUTO) 7.2 % (1.0-6.0); HEMATOCRIT 32.7 % (41-53); HEMOGLOBIN 11.2 g/dL (13.5-17.5); LYMPHOCYTES # (AUTO) 1.2 K/uL (1.0-4.8); LYMPHOCYTES % (AUTO) 22.8 % (22.0-44.0); MEAN CORPUSCULAR HEMOGLOBIN 32.8 pg (26.0-34.0); MEAN CORPUSCULAR HGB CONC 34.4 G/dL (31.0-37.0); MEAN CORPUSCULAR VOLUME 96 fL (80-100); MONOCYTES # (AUTO) 0.6 K/uL (0.1-1.0); MONOCYTES % (AUTO) 11.1 % (2.0-9.0); NEUTROPHILS % (AUTO) 57.7 % (40.0-70.0); PLATELET COUNT (AUTO) 120 K/uL (150-450); RED BLOOD CELL COUNT(AUTO) 3.43 MIL/uL (4.50-5.90); RED CELL DISTRIBUTION WIDTH 14.5 % (11.5-14.5)
[2017-09-27 06:53] LABS: CREATININE 7.73 mg/dL (0.60-1.30); POTASSIUM 4.4 mmol/L (3.5-5.1)
[2017-09-27 07:47] VITALS: BP 118/56
[2017-09-27] MEDS: VITAMIN B COMP/VIT C/FOLIC ACID CAPSULE PO SCH (08:10)
[2017-09-27] MEDS: SEVELAMER CARBONATE 800 MG TABLET PO SCH ×3 (08:10→17:53)
[2017-09-27] MEDS: PANTOPRAZOLE SODIUM 40 MG DR TABLET PO SCH (08:11)
[2017-09-27] MEDS: ASPIRIN 81 MG CHEWABLE TABLET PO SCH (08:11)
[2017-09-27] MEDS: DOCUSATE SODIUM 100 MG CAPSULE PO SCH ×2 (08:11→20:12)
[2017-09-27] MEDS: CHOLECALCIFEROL (VIT D3) 1,000 UNITS TABLET PO SCH (08:11)
[2017-09-27] MEDS: CARVEDILOL 25 MG TABLET PO SCH ×2 (08:11→20:12)
[2017-09-27] MEDS: ROSUVASTATIN CALCIUM 10 MG TABLET PO SCH (08:11)
[2017-09-27] MEDS: NITROGLYCERIN 2% (1 GM=INCH) PACKET TP SCH ×2 (08:12→15:21)
[2017-09-27] MEDS ORDERED: LISINOPRIL 10 MG TABLET PO SCH (09:00)
[2017-09-27] MEDS ORDERED: LISI-661 PO (10:30)
[2017-09-27] MEDS ORDERED: FOLI1CAP2 PO (10:30)
[2017-09-27] MEDS ORDERED: IBUP-1506 PO (10:31)
[2017-09-27 11:49] VITALS: BP 117/54
[2017-09-27 15:33] VITALS: BP 127/54
[2017-09-27 19:47] VITALS: BP 146/62
== END 2017-09-27 20:58 | disposition home or self-care (01) | DRG 313 ==
LOC: EMS 00:26 → 5S 02:51
PROVIDERS: ADMIT Internal Medicine; ATTEND Internal Medicine
PROC: 4B02XTZ Measurement of Cardiac Defibrillator, External Approach (ICD-10-PCS; 2017-09-25)
PROC: 5A1D70Z Performance of Urinary Filtration, Intermittent, Less than 6 Hours Per Day (ICD-10-PCS; principal; 2017-09-26)
DX: R07.89 Other chest pain (principal); I13.2 Hypertensive heart and chronic kidney disease with heart failure and with stage 5 chronic kidney disease, or end stage renal disease; N18.6 End stage renal disease; I42.9 Cardiomyopathy, unspecified; N39.0 Urinary tract infection, site not specified; I50.42 Chronic combined systolic (congestive) and diastolic (congestive) heart failure; E78.5 Hyperlipidemia, unspecified; J45.909 Unspecified asthma, uncomplicated; K21.9 Gastro-esophageal reflux disease without esophagitis; M10.9 Gout, unspecified; Z99.2 Dependence on renal dialysis; Z91.19 Patient's noncompliance with other medical treatment and regimen; Z95.810 Presence of automatic (implantable) cardiac defibrillator; Z79.899 Other long term (current) drug therapy; Z91.018 Allergy to other foods; Z85.46 Personal history of malignant neoplasm of prostate; Z91.81 History of falling
CPT/HCPCS: 87081; 87086; 87340; 90935; 93005; 93306; 96374; 99285; J0696; J7060

== ENCOUNTER 2017-11-04 19:35 | Emergency (ER) | payer MEDICARE, OTHER ==
[~2017-11-04] VITALS: Ht 180.3 cm; Wt 81.8 kg
[~2017-11-04 19:35] MED LIST changes: +ALLO100T PO; -ASPI-825 PO; -B CO1CAP4 PO; +FOLI1CAP2 PO; -HYDR25TA84 PO; +IBUP-1506 PO; +LISI-661 PO
[2017-11-04 20:17] LABS: BASOPHILS % (AUTO) 1.2 % (0.0-2.0); EOSINOPHILS % (AUTO) 5.9 % (1.0-6.0); HEMATOCRIT 29.9 % (41-53); HEMOGLOBIN 10.3 g/dL (13.5-17.5); LYMPHOCYTES % (AUTO) 17.8 % (22.0-44.0); MEAN CORPUSCULAR HEMOGLOBIN 33.5 pg (26.0-34.0); MEAN CORPUSCULAR HGB CONC 34.3 G/dL (31.0-37.0); MEAN CORPUSCULAR VOLUME 98 fL (80-100); MONOCYTES # (AUTO) 0.6 K/uL (0.1-1.0); MONOCYTES % (AUTO) 11.4 % (2.0-9.0); NEUTROPHILS # (AUTO) 3.5 K/uL (1.8-7.7); NEUTROPHILS % (AUTO) 63.7 % (40.0-70.0); PLATELET COUNT (AUTO) 140 K/uL (150-450); RED BLOOD CELL COUNT(AUTO) 3.06 MIL/uL (4.50-5.90)
[2017-11-04 20:43] LABS: CREATININE 11.62 mg/dL (0.60-1.30); POTASSIUM 4.1 mmol/L (3.5-5.1)
[2017-11-04 20:48] LABS: ALBUMIN 3.2 g/dL (3.4-5.0); BILIRUBIN,TOTAL 0.4 mg/dL (0.1-1.0); TOTAL PROTEIN, SERUM 7.1 g/dL (6.4-8.2)
[2017-11-04 22:17] LABS: APPEARANCE,URINE CLOUDY (CLEAR); BILIRUBIN,URINE NEGATIVE (NEGATIVE); GLUCOSE, URINE (UA) NEGATIVE (NEGATIVE); KETONES,URINE NEGATIVE (NEGATIVE); LEUKOCYTE ESTERASE ,URINE MODERATE (NEGATIVE); NITRATE,URINE POSITIVE (NEGATIVE); OCCULT BLOOD,URINE MODERATE (NEGATIVE); PROTEIN,URINE SEE CONFIRM (NEGATIVE)
[2017-11-04 22:43] LABS: SULFOSALICYLIC ACID,URINE 2+ (Negative)
[2017-11-04 22:45] LABS: RBC,URINE 0-2 /HPF (0-2)
[2017-11-04 22:46] LABS: WBC,URINE >100 /HPF (0-5)
[2017-11-04 22:47] LABS: BACTERIA,URINE Moderate /HPF (None Seen); SQUAMOUS EPITHELIAL CELL,UR Rare /LPF (None Seen)
[2017-11-04 22:48] LABS: AMORPHOUS SEDIMENT,UR Few /LPF (None Seen)
[2017-11-04] MEDS ORDERED: TraMADol HCL 50 MG TABLET PO ONE (23:00)
[2017-11-04 23:11] VITALS: BP 145/70
== END 2017-11-04 23:15 | disposition home or self-care (01) ==
LOC: EMS 19:36
DX: N39.0 Urinary tract infection, site not specified (principal); G89.29 Other chronic pain; M54.5 Low back pain; I13.2 Hypertensive heart and chronic kidney disease with heart failure and with stage 5 chronic kidney disease, or end stage renal disease; N18.6 End stage renal disease; I50.9 Heart failure, unspecified; Z99.2 Dependence on renal dialysis; J45.909 Unspecified asthma, uncomplicated; K21.9 Gastro-esophageal reflux disease without esophagitis; M10.9 Gout, unspecified; Z79.899 Other long term (current) drug therapy
CPT/HCPCS: 87086; 93005; 99285

== ENCOUNTER → 2017-11-22 | Outpatient (CLI) | payer MEDICARE, OTHER | END | disposition home or self-care (01) | LOC: RADPV 13:19 | PROVIDERS: ATTEND Specialist | DX: R07.82 Intercostal pain (principal) | CPT/HCPCS: 71111 ==

== ENCOUNTER 2018-04-13 02:18 | Emergency (ER) | payer MEDICARE, OTHER ==
[~2018-04-13] VITALS: Ht 182.9 cm; Wt 87.4 kg
[2018-04-13] MEDS ORDERED: AMLO-512 PO (02:24)
[2018-04-13] MEDS ORDERED: LISI-660 PO (02:24)
[2018-04-13] MEDS ORDERED: APIX2.5T PO (02:24)
[2018-04-13 02:49] LABS: BASOPHILS % (AUTO) 1.1 % (0.0-2.0); EOSINOPHILS % (AUTO) 4.6 % (1.0-6.0); HEMATOCRIT 30.7 % (41-53); HEMOGLOBIN 10.5 g/dL (13.5-17.5); LYMPHOCYTES % (AUTO) 19.4 % (22.0-44.0); MEAN CORPUSCULAR HEMOGLOBIN 33.9 pg (26.0-34.0); MEAN CORPUSCULAR HGB CONC 34.3 G/dL (31.0-37.0); MEAN CORPUSCULAR VOLUME 99 fL (80-100); MONOCYTES # (AUTO) 0.8 K/uL (0.1-1.0); MONOCYTES % (AUTO) 15.4 % (2.0-9.0); NEUTROPHILS # (AUTO) 3.2 K/uL (1.8-7.7); NEUTROPHILS % (AUTO) 59.5 % (40.0-70.0); PLATELET COUNT (AUTO) 129 K/uL (150-450); RED CELL DISTRIBUTION WIDTH 14.2 % (11.5-14.5)
[2018-04-13 03:04] LABS: ALBUMIN 3.5 g/dL (3.4-5.0); BILIRUBIN,TOTAL 0.7 mg/dL (0.1-1.0); CALCIUM, TOTAL 8.5 mg/dL (8.8-10.5); CREATININE 6.5 mg/dL (0.60-1.30); POTASSIUM 3.6 mmol/L (3.5-5.1); TOTAL PROTEIN, SERUM 6.9 g/dL (6.4-8.2)
[2018-04-13 04:53] VITALS: BP 124/68
== END 2018-04-13 05:49 | disposition home or self-care (01) ==
LOC: EMS 02:18
DX: R55 Syncope and collapse (principal); R42 Dizziness and giddiness; I13.2 Hypertensive heart and chronic kidney disease with heart failure and with stage 5 chronic kidney disease, or end stage renal disease; N18.6 End stage renal disease; I50.9 Heart failure, unspecified; J45.909 Unspecified asthma, uncomplicated; Z99.2 Dependence on renal dialysis; Z95.0 Presence of cardiac pacemaker; Z91.018 Allergy to other foods; Z79.899 Other long term (current) drug therapy
CPT/HCPCS: 70450; 93005